=== PATIENT | male | born 2000 | race Caucasian/White ===

== ENCOUNTER 2023-03-28 22:22 | Emergency (ER) | payer MEDICAID ==
[~2023-03-28] VITALS: Ht 182.9 cm; Wt 77.3 kg
[2023-03-28 22:28] VITALS: BP 137/84
[2023-03-28] MEDS ORDERED: SULF1TAB45 PO (23:11)
[2023-03-28] MEDS ORDERED: CEPH-585 PO (23:11)
[2023-03-28] MEDS ORDERED: cephalexin 250mg capsule PO ONE (23:15)
[2023-03-28] MEDS ORDERED: sulfamethoxazole/trimethoprim DS (800/160mg) tablet PO ONE (23:15)
== END 2023-03-29 00:05 | disposition home or self-care (01) ==
LOC: ER 22:22
DX: L60.0 Ingrowing nail (principal)
CPT/HCPCS: 99283